=== PATIENT | female | born 1970 | race Caucasian/White ===

== ENCOUNTER 2019-08-09 11:11 | Day surgery (SDC) | payer BC, OTHER ==
[~2019-08-09] VITALS: Ht 167.6 cm; Wt 110.9 kg
[~2019-08-09 11:11] MED LIST: BUPIVACAINE/PF-EPI 0.25% 1:200K ONE; CEFAZOLIN 1,000 MG ONE; DEXAMETHASONE 4 MG/ML, 1ML ONE; FENTANYL PF 250 MCG/5ML ONE; GLYCOPYRROLATE 0.2MG/1ML, 5ML ONE; KETOROLAC 30 MG/1 ML ONE; METHYLENE BLUE 10 MG/ML 10ML ONE; MIDAZOLAM 1 MG/ML, 2ML ONE; MULT1TAB60 PO; NEOSTIGMINE 1 MG/ML, 10ML ONE; ONDANSETRON 2MG/ML, 2ML ONE; PROPOFOL 10 MG/ML, 20ML ONE; ROCURONIUM 10MG/ML,5ML ONE; ROPI1TAB4 PO
[2019-08-09] MEDS ORDERED: INDIGO CARMINE 0.8%, 5ML ONE (11:18)
[2019-08-09] MEDS ORDERED: BUPIVACAINE/PF-EPI 0.25% 1:200K ONE (11:18)
[2019-08-09] MEDS ORDERED: CHLORHEXIDINE 15 ML UDC MM STA (11:33)
[2019-08-09] MEDS ORDERED: LACTATED RINGERS 1,000 ML IV ONE (11:33)
[2019-08-09 11:36] VITALS: BP 128/88
[2019-08-09 12:01] LABS: HCG UR SG 1.014 (1.003-1.030)
[2019-08-09] MEDS ORDERED: ACETAMINOPHEN 500 MG TABLET PO STA (12:35)
[2019-08-09] MEDS ORDERED: GABAPENTIN 300 MG CAPSULE PO STA (12:35)
[2019-08-09] MEDS ORDERED: SCOPOLAMINE 1MG PATCH TD ONE ×2 (12:36→12:38)
[2019-08-09] MEDS ORDERED: GABAPENTIN 300 MG CAPSULE ONE (12:36)
[2019-08-09] MEDS ORDERED: ACETAMINOPHEN 500 MG TABLET ONE (12:36)
[2019-08-09] MEDS ORDERED: hydrALAzine 20 MG/ML, 1ML IV PRN (13:00)
[2019-08-09] MEDS ORDERED: morphine SULFATE 10 MG/ML, 1ML IVPush PRN (13:00)
[2019-08-09] MEDS ORDERED: LABETALOL 5MG/ML, 20ML IV PRN (13:00)
[2019-08-09] MEDS ORDERED: HYDROmorphone 1 MG/ML, 1ML INJ IVPush PRN (13:00)
[2019-08-09] MEDS ORDERED: MEPERIDINE/PF 25MG/0.5ML IVPush PRN (13:00)
[2019-08-09] MEDS ORDERED: OXYcodone 5 MG/5 ML ORAL.SOL UDC PO PRN (13:00)
[2019-08-09] MEDS ORDERED: HALOPERIDOL 5 MG/ML IV PRN (13:00)
[2019-08-09] MEDS ORDERED: FENTANYL PF 100 MCG/2ML IV PRN (13:00)
[2019-08-09] MEDS ORDERED: PROMETHAZINE 25 MG/ML, 1ML IVPush PRN (13:00)
[2019-08-09] MEDS ORDERED: FENTANYL PF 250 MCG/5ML ONE ×2 (13:16→13:39)
[2019-08-09] MEDS ORDERED: LACTATED RINGERS 1,000 ML IV SCH (14:26)
[2019-08-09] MEDS ORDERED: PROMETHAZINE 25 MG SUPP PR ONE (14:30)
[2019-08-09] MEDS ORDERED: IBUPROFEN 600 MG TABLET PO PRN (14:30)
[2019-08-09] MEDS ORDERED: ONDANSETRON 2MG/ML, 2ML IVPush PRN (14:30)
[2019-08-09] MEDS ORDERED: OXYcodone/APAP 5/325MG TABLET PO PRN (14:30)
== END 2019-08-09 17:50 | disposition home or self-care (01) ==
LOC: OUT 11:11
PROVIDERS: ATTEND Obstetrics & Gynecology Female Pelvic Medicine and Reconstructive Surgery
DX: D25.9 Leiomyoma of uterus, unspecified (principal); N99.71 Accidental puncture and laceration of a genitourinary system organ or structure during a genitourinary system procedure; N92.0 Excessive and frequent menstruation with regular cycle; N93.8 Other specified abnormal uterine and vaginal bleeding; R10.2 Pelvic and perineal pain; R35.0 Frequency of micturition; G43.909 Migraine, unspecified, not intractable, without status migrainosus; Z79.899 Other long term (current) drug therapy
CPT/HCPCS: 58554; 81025; 88307; J0690; J1100; J1885; J2250; J2405; J2704; J2710; J3010; J7120; S2900; U0001; Q9968